=== PATIENT | female | born 1945 | race Caucasian/White ===

== ENCOUNTER 2020-03-12 15:48 | Emergency (ER) | payer MEDICARE, BC ==
--- NOTE | 2020-03-12 16:25 | EDM.PDOC ---
ED HPI GENERAL MEDICAL PROBLEM - General Chief Complaint: Respiratory Problem Stated Complaint: COUGH, FEVER Time Seen by Provider: 03/12/20 16:05 Source of Information: Reports: Patient, Significant Other History Limitations: Reports: Other (dementia hx) - History of Present Illness INITIAL COMMENTS - FREE TEXT/NARRATIVE: pt presents to the ER with symptoms of SOB with cough which has been worsening over the last 2-3 days, elevated temp tmax 100.2. pt is poor historian but remainder of history given by who states she has been feeling increasingly ill over the last week. he provides that they are from [place] and are on vacation over the last week. provides medical history significant for COPD and exacerbations. - Related Data Allergies Allergy/AdvReac Type Severity Reaction Status Date / Time No Known Allergies Allergy Verified 03/12/20 16:22 Home Meds: Home Meds Azithromycin 250 mg PO DAILY #6 tablet 03/12/20 [Rx] predniSONE 20 mg PO WITHBREAKFAST 5 Days #5 tab 03/12/20 [Rx] ED ROS GENERAL - Review of Systems Review Of Systems: Comprehensive ROS is negative, except as noted in HPI. ED EXAM, GENERAL - Physical Exam Exam: See Below Exam Limited By: Altered Mental Status General Appearance: Alert, WD/WN, No Apparent Distress Eye Exam: Bilateral Eye: EOMI, PERRL Ears: Hearing Grossly Normal Nose: Normal Inspection Throat/Mouth: Normal Inspection, Normal Teeth, Normal Gums, Normal Oropharynx Head: Atraumatic, Normocephalic Neck: Non-Tender, Full Range of Motion Cardiovascular: Normal Peripheral Pulses, Regular Rate, Rhythm, No Edema, No JVD, No Murmur Peripheral Pulses: 2+: Radial (L), Radial (R), Posterior Tibial (L), Posterior Tibial (R) Extremities: Normal Inspection, Normal Range of Motion, Non-Tender Neurological: Alert, CN II-XII Intact, Normal Cognition, Normal Gait, No Motor/Sensory Deficits Psychiatric: Normal Mood Skin Exam: Warm, Dry, Intact, No Rash Lymphatic: No Adenopathy Course - Vital Signs Last Recorded V/S: Last Vital Signs Temp 99.5 F 03/12/20 16:00 Pulse 86 03/12/20 16:00 Resp 20 03/12/20 16:00 BP 142/75 H 03/12/20 16:00 Pulse Ox 96 03/12/20 16:00 - Orders/Labs/Meds Orders: Active Orders 24 hr Category Date Time Status Chest 1V Frontal [CR] Stat Exams 03/12/20 16:18 Ordered CORONAVIRUS COVID-19, [facility] Stat Lab 03/12/20 16:20 Received INPATIENT Stat Lab 03/12/20 16:20 Received Labs: Laboratory Tests 03/12/20 03/12/20 Range/Units 16:17 16:18 WBC 11.3 H (4.0-11.0) K/uL RBC 4.57 (3.80-5.80) M/uL Hgb 13.3 (11.5-16.5) g/dL Hct 41.0 (37.0-47.0) % MCV 90 (76-96) fL MCH 29.1 (27.0-32.0) pg MCHC 32.4 (31.0-35.0) g/dL RDW 14.7 (11.0-16.0) % Plt Count 286 (150-500) K/uL MPV 9.7 (6.0-10.0) fL Neut % (Auto) 86.9 H (45.0-70.0) % Lymph % (Auto) 5.8 L (20.0-40.0) % [place] % (Auto) 6.1 (3.0-10.0) % Eos % (Auto) 0.8 L (1.0-5.0) % Baso % (Auto) 0.4 (0.0-0.5) % Neut # (Auto) 9.80 H (2.00-7.50) K/uL Lymph # (Auto) 0.65 L (1.50-4.00) K/uL [place] # (Auto) 0.69 (0.20-0.80) K/uL Eos # (Auto) 0.09 (0.04-0.40) K/uL Baso # (Auto) 0.05 (0.02-0.10) K/uL Sodium 140 (136-145) mmol/L Potassium 4.1 (3.5-5.1) mmol/L Chloride 106 (98-107) mmol/L Carbon Dioxide 27.7 (21.0-32.0) mmol/L Anion Gap 10.4 (5.0-15.0) mmol/L BUN 15 (8-26) mg/dL Creatinine 1.15 H (0.55-1.02) mg/dL Est Cr Clr Drug Dosing TNP Estimated GFR (MDRD) 46 L (>60) MLS/MIN BUN/Creatinine Ratio 13.0 (6-25) Glucose 105 H (74-100) mg/dL Calcium 8.7 (8.5-10.1) mg/dL Total Bilirubin 0.7 (0.0-1.0) mg/dL AST 35 (15-37) U/L ALT 32 (12-78) U/L Alkaline Phosphatase 82 (46-116) U/L Total Protein 6.9 (6.4-8.2) g/dL Albumin 3.4 (3.4-5.0) g/dL Globulin 3.5 (2.2-4.2) g/dL Albumin/Globulin Ratio 1.0 (0.8-2.0) Meds: Medications Discontinued Medications Generic Name Dose Route Start Last Admin Trade Name Blaineq PRN Reason Stop Dose Admin Methylprednisolone Sodium Succinate 125 mg 03/12/20 16:43 03/12/20 16:48 Solu-Medrol IVPUSH 03/12/20 16:44 125 mg ONETIME ONE Administration Methylprednisolone Sodium Succinate Confirm 03/12/20 16:52 03/12/20 16:48 Solu-Medrol Administered 03/12/20 16:53 Not Given Dose 125 mg .ROUTE .STK-MED ONE - Radiology Interpretation Free Text/Narrative:: wet read CXR shows no noted consolodation, pneumothoracies, bony abnormalities, infiltrates. Departure - Departure Time of Disposition: 16:45 Disposition: Home, Self-Care 01 Condition: Good Clinical Impression: Person under investigation for COVID-19, COPD exacerbation - Discharge Information *PRESCRIPTION DRUG MONITORING PROGRAM REVIEWED*: Not Applicable *COPY OF PRESCRIPTION DRUG MONITORING REPORT IN PATIENT KODY: Not Applicable Prescriptions: Azithromycin 250 mg PO DAILY #6 tablet predniSONE 20 mg PO WITHBREAKFAST 5 Days #5 tab Instructions: Chronic Obstructive Pulmonary Disease Exacerbation, [id number] Referrals: PCP,None [Primary Care Provider] - Forms: ED Department Discharge Additional Instructions: no signs of a pneumonia today, we will treat you aggressively with antibiotics and steroids as if you did have one. you are currently a "patient under investigation" so you need to socially isolate until the results come back. if negative you may go about your normal routine. if positive you must continue self isolation to prevent spread. return to ER if you have severe symptoms. your vital signs today were wonderful! drink at least 100oz of water a day prednisone 20mg a day starting tomorrow for the next 5 days azithromycin, start this today when you pick it up from the pharmacy follow up in the clinic in the next 1-2 weeks for a recheck. continue taking your inhaler medications as prescribed. Sepsis Event Note (ED) - Focused Exam Vital Signs: Vital Signs Temp Pulse Resp BP Pulse Ox 03/12/20 16:00 99.5 F 86 20 142/75 H 96 - Problem List & Annotations (1) COPD exacerbation SNOMED Code(s): 639472182 Code(s): J44.1 - CHRONIC OBSTRUCTIVE PULMONARY DISEASE W (ACUTE) EXACERBATION Status: Acute Current Visit: Yes (2) Person under investigation for COVID-19 SNOMED Code(s): 864135110 Code(s): Z20.828 - CONTACT W AND EXPOSURE TO OTH VIRAL COMMUNICABLE DISEASES Status: Acute Current Visit: Yes - Problem List Review Problem List Initiated/Reviewed/Updated: Yes - My Orders Last 24 Hours: My Active Orders 03/12/20 16:18 Chest 1V Frontal [CR] Stat 03/12/20 16:20 CORONAVIRUS COVID-19, [facility] Stat INPATIENT Stat - Assessment/Plan Last 24 Hours: My Active Orders 03/12/20 16:18 Chest 1V Frontal [CR] Stat 03/12/20 16:20 CORONAVIRUS COVID-19, [facility] Stat INPATIENT Stat Assessment:: assessment: pt under investigation COPD exacerbation plan: azithromycin and prednisone for next five days follow up in clinic in 1-2 weeks for recheck return to ER sooner if symptoms worsen or become concerning. social isolation until covid results return.
[2020-03-12] MEDS ORDERED: methylPREDNISolone Sodium Succinate 125 MG/2 ML SDV IVPUSH ONE (16:43)
[2020-03-12] MEDS ORDERED: methylPREDNISolone Sodium Succinate 125 MG/2 ML SDV ONE (16:52)
--- NOTE | 2020-03-13 08:02 | CR ---
DATE OF SERVICE: 03/12/20 CLINICAL DATA: sob AP CHEST: No priors. The heart size is within normal limits. There is calcification of the aortic arch. The lungs are mildly hyperexpanded but clear. No pneumothorax. No pleural effusions. No evidence of acute intrathoracic disease. [id number] [facility]
== END 2020-03-12 17:08 | disposition home or self-care (01) ==
LOC: MERGE 15:48 → LB.ED 15:48
DX: J44.1 Chronic obstructive pulmonary disease with (acute) exacerbation (principal); Z20.828 Contact with and (suspected) exposure to other viral communicable diseases
CPT/HCPCS: 36415; 71045; 80053; 85025; 96374; 99284; 99284-25; J2930; U0002